=== PATIENT | female | born 1995 | race Hispanic/Latino ===

== ENCOUNTER 2020-10-21 14:42 | Emergency (ER) | payer OTHER ==
[2020-10-21 15:30] LABS: BASOPHILS % (AUTO) 0.5 % (0.0-5.0); EOSINOPHILS % (AUTO) 0.5 % (0.0-8.0); HEMATOCRIT 42.1 % (36-48); LYMPHOCYTES % (AUTO) 26.9 % (21.0-51.0); MEAN CORPUSCULAR HEMOGLOBIN 27.1 pg (27.0-33.0); MEAN CORPUSCULAR HGB CONC 32.8 g/dL (32.0-36.0); MEAN CORPUSCULAR VOLUME 82.7 fL (79-99); MONOCYTES % (AUTO) 4.5 % (3.0-13.0); NEUTROPHILS % (AUTO) 67.3 % (40.0-77.0); PLATELET COUNT (AUTO) 344 K/uL (130-400); RED BLOOD CELL COUNT(AUTO) 5.09 MIL/uL (4.00-5.50); RED CELL DISTRIBUTION WIDTH 13.1 % (11.0-15.5); WHITE BLOOD COUNT (AUTO) 9.3 K/uL (4.8-10.8)
[2020-10-21 15:47] LABS: CREATININE 0.9 mg/dL (0.5-1.5); POTASSIUM 3.6 mmol/L (3.5-5.1)
[2020-10-21 15:57] LABS: APPEARANCE,URINE Cloudy (CLEAR); BILIRUBIN,URINE Negative (NEGATIVE); COLOR,URINE Yellow (YELLOW); GLUCOSE, URINE (UA) Negative (NEGATIVE); KETONES,URINE Trace mg/dL (NEGATIVE); LEUKOCYTE ESTERASE ,URINE Trace (NEGATIVE); NITRATE,URINE Negative (NEGATIVE); OCCULT BLOOD,URINE Negative (NEGATIVE); PH,URINE 7.5 (5.0-8.0); PROTEIN,URINE Negative (NEGATIVE)
[2020-10-21 16:00] LABS: HCG,QUAL RESULT NEGATIVE (NEGATIVE)
[2020-10-21 16:00] LABS: ALBUMIN 3.4 g/dL (3.5-5.0); BILIRUBIN,TOTAL 0.2 mg/dL (0.2-1.0); TOTAL PROTEIN, SERUM 7.9 g/dL (6.0-8.3)
[2020-10-21 16:23] LABS: AMORPHOUS SEDIMENT,UR Few /LPF (None Seen); BACTERIA,URINE Few /HPF (None Seen); RBC,URINE None Seen /HPF (0-1); SQUAMOUS EPITHELIAL CELL,UR 0-2 /HPF (0-2); WBC,URINE 0-1 /HPF (0-1)
== END 2020-10-21 17:12 | disposition home or self-care (01) ==
LOC: EDH 14:42
DX: N94.6 Dysmenorrhea, unspecified (principal); Z88.6 Allergy status to analgesic agent
CPT/HCPCS: 36415; 76856; 80053; 81001; 81025; 84702; 85025

== ENCOUNTER 2021-03-31 16:09 | Emergency (ER) | payer SELFPAY ==
[~2021-03-31] VITALS: Ht 157.5 cm; Wt 94.3 kg
[2021-03-31 16:12] VITALS: BP 140/94
[2021-03-31] MEDS ORDERED: CYCLOBENZAPRINE HCL 10 MG TABLET PO ONE (16:30)
[2021-03-31] MEDS ORDERED: ACETAMINOPHEN 500 MG TABLET PO ONE (16:30)
[2021-03-31 16:47] LABS: BASOPHILS % (AUTO) 0.4 % (0.0-5.0); EOSINOPHILS % (AUTO) 0.8 % (0.0-8.0); LYMPHOCYTES % (AUTO) 36.1 % (21.0-51.0); MEAN CORPUSCULAR HEMOGLOBIN 26.9 pg (27.0-33.0); MEAN CORPUSCULAR HGB CONC 32.5 g/dL (32.0-36.0); MEAN CORPUSCULAR VOLUME 82.6 fL (79-99); MONOCYTES % (AUTO) 5.1 % (3.0-13.0); NEUTROPHILS % (AUTO) 57.1 % (40.0-77.0); PLATELET COUNT (AUTO) 301 K/uL (130-400); RED BLOOD CELL COUNT(AUTO) 4.84 MIL/uL (4.00-5.50); RED CELL DISTRIBUTION WIDTH 13.3 % (11.0-15.5); WHITE BLOOD COUNT (AUTO) 8.6 K/uL (4.8-10.8)
[2021-03-31] MEDS ORDERED: ACETAMINOPHEN 500 MG TABLET ONE (16:55)
[2021-03-31] MEDS ORDERED: CYCLOBENZAPRINE HCL 10 MG TABLET ONE (16:55)
[2021-03-31 17:04] LABS: CREATININE 0.8 mg/dL (0.5-1.5); POTASSIUM 3.5 mmol/L (3.5-5.1)
[2021-03-31 17:09] LABS: ALBUMIN 3.6 g/dL (3.5-5.0); BILIRUBIN,TOTAL 0.2 mg/dL (0.2-1.0); TOTAL PROTEIN, SERUM 7.7 g/dL (6.0-8.3)
[2021-03-31] MEDS ORDERED: CYCL10TA16 PO (17:25)
[2021-03-31] MEDS ORDERED: ACET-2247 PO (17:25)
== END 2021-03-31 17:38 | disposition home or self-care (01) ==
LOC: EDH 16:09
DX: M94.0 Chondrocostal junction syndrome [Tietze] (principal); K21.9 Gastro-esophageal reflux disease without esophagitis; R03.0 Elevated blood-pressure reading, without diagnosis of hypertension; Z88.6 Allergy status to analgesic agent; E66.9 Obesity, unspecified; Z68.38 Body mass index [BMI] 38.0-38.9, adult
CPT/HCPCS: 36415; 71045; 80053; 81025; 84484; 85025; 93005

== ENCOUNTER 2021-08-22 10:59 | Emergency (ER) | payer OTHER ==
[~2021-08-22] VITALS: Ht 157.5 cm; Wt 97.1 kg
[~2021-08-22 10:59] MED LIST: ACET-2247 PO; CYCL10TA16 PO
[2021-08-22 11:36] LABS: BASOPHILS % (AUTO) 0.5 % (0.0-5.0); EOSINOPHILS % (AUTO) 1.3 % (0.0-8.0); HEMATOCRIT 40.9 % (36-48); LYMPHOCYTES % (AUTO) 30.9 % (21.0-51.0); MEAN CORPUSCULAR HEMOGLOBIN 27.1 pg (27.0-33.0); MONOCYTES % (AUTO) 5.5 % (3.0-13.0); NEUTROPHILS % (AUTO) 61.6 % (40.0-77.0); PLATELET COUNT (AUTO) 319 K/uL (130-400); RED BLOOD CELL COUNT(AUTO) 4.99 MIL/uL (4.00-5.50); RED CELL DISTRIBUTION WIDTH 13.4 % (11.0-15.5); WHITE BLOOD COUNT (AUTO) 9.6 K/uL (4.8-10.8)
[2021-08-22 11:47] LABS: APPEARANCE,URINE Cloudy (CLEAR); BILIRUBIN,URINE Negative (NEGATIVE); COLOR,URINE Yellow (YELLOW); GLUCOSE, URINE (UA) Negative (NEGATIVE); KETONES,URINE Negative (NEGATIVE); LEUKOCYTE ESTERASE ,URINE Trace (NEGATIVE); NITRATE,URINE Negative (NEGATIVE); OCCULT BLOOD,URINE Negative (NEGATIVE); PH,URINE 5.5 (5.0-8.0); PROTEIN,URINE Negative (NEGATIVE)
[2021-08-22 11:52] LABS: CARBON DIOXIDE 27 mmol/L (21-32); CHLORIDE 106 mmol/L (101-111); CREATININE 0.7 mg/dL (0.5-1.5); GLOMERULAR FILTR. RATE CALC 107 mL/min (>60); GLUCOSE,RANDOM 89 mg/dL (70-105); POTASSIUM 3.9 mmol/L (3.5-5.1); SODIUM SERUM 141 mmol/L (136-145); UREA NITROGEN, BLOOD 9 mg/dL (7-18)
[2021-08-22 11:55] LABS: AMPHET/METH SCREEN,URINE NEGATIVE (NEGATIVE); BARBITURATE SCREEN, URINE NEGATIVE (NEGATIVE); BENZODIAZEPINES SCREEN,URINE NEGATIVE (NEGATIVE); CANNABINOID SCREEN,URINE NEGATIVE (NEGATIVE); COCAINE SCREEN,URINE NEGATIVE (NEGATIVE); OPIATE SCREEN,URINE NEGATIVE (NEGATIVE); PHENCYCLIDINE SCREEN,URINE NEGATIVE (NEGATIVE)
[2021-08-22 11:56] LABS: ALANINE AMINOTRANSFERASE 32 U/L (12-78); ALBUMIN 3.3 g/dL (3.5-5.0); ASPARTATE AMINOTRANSFERASE 20 U/L (10-37); TOTAL PROTEIN, SERUM 7.4 g/dL (6.0-8.3)
[2021-08-22 11:57] LABS: HCG,QUAL RESULT NEGATIVE (NEGATIVE)
[2021-08-22 11:59] LABS: BACTERIA,URINE Few /HPF (None Seen); RBC,URINE None Seen /HPF (0-1)
[2021-08-22 12:26] LABS: BILIRUBIN,TOTAL < 0.1 mg/dL (0.2-1.0)
[2021-08-22] MEDS ORDERED: CALCIUM GLUC 1GM/10ML VIAL IVPB SCH (13:30)
[2021-08-22] MEDS ORDERED: CALCIUM GLUC 1GM/10ML VIAL ONE (13:39)
[2021-08-22] MEDS ORDERED: CALCIUM GLUC 1GM 1 GM in 0.9%NACL 100ML 100 ML IV SCH (14:00)
[2021-08-22] MEDS ORDERED: MECL-226 PO (15:43)
[2021-08-22 16:29] VITALS: BP 138/92
== END 2021-08-22 16:48 | disposition home or self-care (01) ==
LOC: EDH 10:59
DX: R42 Dizziness and giddiness (principal); E83.51 Hypocalcemia; R82.71 Bacteriuria; K21.9 Gastro-esophageal reflux disease without esophagitis; E66.9 Obesity, unspecified; Z88.6 Allergy status to analgesic agent; Z68.30 Body mass index [BMI] 30.0-30.9, adult
CPT/HCPCS: 36415; 80053; 80305; 81001; 81025; 85025; 93005; 96365; 96366; 99284; J0610 ×2

== ENCOUNTER 2024-10-30 08:16 | Emergency (ER) | payer MEDICAID, OTHER ==
[~2024-10-30] VITALS: Ht 157.5 cm; Wt 104.3 kg
[~2024-10-30 08:16] MED LIST changes: +MECL-226 PO
[2024-10-30 10:35] LABS: RAPID GROUP A STREP negative (NEGATIVE)
[2024-10-30 10:46] LABS: COVID19 (SARS ANTIGEN RAPID) PRESUMPTIVE NEGATIVE (NEGATIVE); INFLUENZA TYPE A Negative For Type A (NEGATIVE); INFLUENZA TYPE B Negative For Type B (NEGATIVE)
--- NOTE | 2024-10-30 10:47 | ERN ---
General Chief Complaint: Other Problems Stated Complaint: POPPING SOUNDS IN CHEST WHEN LAYING DOWN Time Seen by MD: 10:07 Time Seen by Midlevel: 10:10 Source: patient History of Present Illness Initial Comments 29-year-old female who presents to the emergency department due to sounds in the chest when lying down. Patient reports she got sick in September, symptoms resolved however cough has continued for the past month. Patient had fever five days ago. Denies any abdominal pain, chest pain, difficulty breathing or further associated symptoms. Denies any significant past medical history. Allergies: Coded Allergies: aspirin (Unverified Allergy, Unknown, 10/21/20) Home Meds Active Scripts D-Methorphan Hb/P-Epd HCl/Bpm (Bromfed Dm Cough Syrup) 2 Mg-30 Mg-10 Mg/5 Ml Syrup, 10 ML PO Q6HPRN for 7 Days, #280 ML Prov:JO-ANN HUGGINS 10/30/24 Azithromycin (Azithromycin) 250 Mg Tablet, 1 TAB PO AD for 5 Days, #6 TAB 0 Refills 2 the first day followed by 1 for days 2-5 Prov:JO-ANN HUGGINS 10/30/24 Meclizine HCl (Meclizine HCl) 12.5 Mg Tablet, 12.5 MG PO Q6HPRN PRN for DIZZINESS, #15 TAB Prov:JORGE BUSTILLOS Jr. 08/22/21 Acetaminophen (Tylenol) 325 Mg Tablet, 650 MG PO Q4HPRN, #50 TAB Prov:KIKO CAMPO 03/31/21 Cyclobenzaprine HCl (Flexeril) 10 Mg Tab, 10 MG PO BID, #30 TAB Prov:KIKO CAMPO 03/31/21 Past Medical History Past Medical History: GERD, Other Medical History Other: PCOS Past Surgical History: None Social History Social History: Negative, Lives with family ROS Dictation Constitutional: Positive for fever Negative for chills, and weight loss Eyes: Negative for injury, pain,redness, and discharge ENT: Negative for injury,pain or swelling Cardiovascular: Negative for chest pain, palpitations, and edema Respiratory: Positive for productive cough Negative for shortness of breath, and wheezing, Abdomen/GI: Negative for abdominal pain, nausea, vomiting, diarrhea, and constipation Back: Negative for injury and pain : Negative for painful urination, bleeding or discharge MS/Extremity: Negative for injury and deformity Skin: Negative for rash, and discoloration Neuro: Negative for headache, weakness, numbness, tingling, and seizure Psych: Negative for suicide ideation, homicidal ideation, and hallucinations Physical Exam Physical Exam Dictation General: awake, alert, no acute distress Head/Face: Normocephalic, atraumatic Eyes: PERRL, EOMI, normal conjunctiva ENT: oral cavity clear, oral mucosa moist Neck: Supple, normal range of motion Cardiovascular: RRR, normal S1/S2 Respiratory: CTAB, no respiratory distress, mild rhonchi auscultated right lower lung Skin: Warm, dry, normal turgor, no rash MS/Extremity: Pulses equal, no cyanosis, neurovascular intact, FROM Neuro: COAx4, GCS 15, strength 5/5, CN 2-12 intact, normal cerebellar exam, normal gait Psych: Normal behavior, mood, and affect normal Results Laboratory and Microbiology Lab and Micro Result Laboratory Tests Test 10/30/24 10:15 Influenza Type A Antigen Negative For Type A Influenza Type B Antigen Negative For Type B SARS-CoV-2 Antigen (Rapid) PRESUMPTIVE NEGATIVE Group A Streptococcus Rapid negative (NEGATIVE) Labs Reviewed?: Yes EKG/XRAY/US/CT/MRI X-RAY Comment REASON: CHEST POPPING. COUGH>2 MONTHS ORDERING PHYSICIAN: MAGDALENA AMADO MD PROCEDURE: CXR2VW - CHEST 2VWS CHEST 2VWS HISTORY: Cough COMPARISON: None FINDINGS: Frontal and lateral projections of the chest were obtained. The heart is not enlarged. Prominent interstitial markings are seen in the right lower lung. Early infiltrates cannot be excluded. IMPRESSION: 1. Prominent interstitial markings are seen in the right lower lung. Early infiltrates cannot be excluded. DICTATED BY: CHANA MOODY MD DATE: 10/30/24 1042 MDM MDM: Differential diagnosis: Pneumonia, URI, viral illness Rationale: 29-year-old female who presents to the emergency department due to sounds in the chest when lying down. Patient reports she got sick in September, symptoms resolved however cough has continued for the past month. Patient had fever five days ago. Denies any abdominal pain, chest pain, difficulty breathing or further associated symptoms. Denies any significant past medical history. Per physical examination mild rhonchi auscultated to the right lower lung, pat ient is in no acute distress, nontoxic appearing. SARs, influenza, strep negative. Chest x-ray obtained indicating prominent interstitial markings to the right lower lung, early infiltrates can not be excluded. Patient was educated on findings and diagnosis. Vitals within normal limits during ED course. Antibiotics prescribed for outpatient treatment. Advised to follow up with PCP. Return to the emergency department if any worsening symptoms. Patient verbalized understanding. Patient stable for discharge. There are no social concerns with this patient. I independently interpreted the test that were performed, results were reviewed by me and considered findings on radiology if ordered. Medical management and examination interpretation discussions were had by me with other qualified healthcare professionals as indicated for the patient's care. ED Course Orders Procedure Category Date Status Time Chest 2vws RAD 10/30/24 Resulted 09:15 Covid19 (Sars Antigen LAB 10/30/24 Complete Rapid) 10:19 Influenza Type A & B, LAB 10/30/24 Complete Rapid 10:19 Rapid (Group A Strep) LAB 10/30/24 Complete 10:19 Vital Signs Date Time Temp Pulse Resp B/P (MAP) Pulse Ox O2 Delivery O2 Flow Rate FiO2 10/30/24 11:00 98.1 89 16 117/68 99 Room Air* 0 21 10/30/24 08:18 98.1 95 16 121/84 98 Room Air DX & DISP Disposition: Discharge Departure Impression: Primary Impression: URI (upper respiratory infection) Condition: Stable Scripts D-Methorphan Hb/P-Epd HCl/Bpm (Bromfed Dm Cough Syrup) 2 Mg-30 Mg-10 Mg/5 Ml Syrup 10 ML PO Q6HPRN for 7 Days, #280 ML Prov: JO-ANN HUGGINS 10/30/24 Azithromycin (Azithromycin) 250 Mg Tablet 1 TAB PO AD for 5 Days, #6 TAB 0 Refills 2 the first day followed by 1 for days 2-5 Prov: JO-ANN HUGGINS 10/30/24 Additional Instructions: Discharge home. Rest. Follow up with primary care in 24 hours. Return to the ER for any acute changes or worsening symptoms. If any medications were prescribed take as directed. Okay to continue home medications unless otherwise discussed during your visit in the emergency room today. Patient was also advised to follow-up with primary care physician in 1 to 2 days for continued monitoring. Referrals: SELF,REFERRAL (PCP) I performed the substantive portion of the visit. I have reviewed and personally made and approve the management plan that is documented in the notes by myself or the [facility]. I acknowledge full responsibility for the patient's management plan. JO-ANN HUGGINS October 30, 2024 10:47
[2024-10-30] MEDS ORDERED: BROM118S48 PO (10:59)
[2024-10-30] MEDS ORDERED: AZIT250T9 PO (10:59)
[2024-10-30 11:00] VITALS: BP 117/68; PULSE 89; RESP 16; TEMP 98.1; O2SAT 99
--- NOTE | 2024-10-30 11:17 | NUR ---
PT STABLE VITALS WNL NO C/O PAIN PT GIVEN INSTRUCTIONS FOR HOME. PT DRIVEN HOME BY SPOUSE. NO IV AT THIS TIME.
== END 2024-10-30 11:12 | disposition home or self-care (01) ==
LOC: EDH 08:16
DX: J06.9 Acute upper respiratory infection, unspecified (principal); Z20.822 Contact with and (suspected) exposure to COVID-19; K21.9 Gastro-esophageal reflux disease without esophagitis; Z88.6 Allergy status to analgesic agent; Z79.899 Other long term (current) drug therapy; Z87.42 Personal history of other diseases of the female genital tract
CPT/HCPCS: 71046; 87426; 87804; 87880; 99284